=== PATIENT | female | born 1980 | race Caucasian/White ===

== ENCOUNTER 2024-11-27 08:33 | Outpatient (OUT) | payer BC, SELFPAY ==
[2024-11-27 09:35] LABS: Hematocrit 38.0 % (36.0-48.0); Hemoglobin 12.5 g/dL (12.0-16.0); Immature Granulocytes Abs Auto 0.01 10^3/uL (0.00-0.03); Immature Granulocytes Pct Auto 0.2 % (0.0-0.5); Lymphocytes Absolute Auto 1.1 10^3/uL (1.2-3.8); Mean Corpuscular HGB Conc 32.9 g/dL (29.9-35.2); Mean Corpuscular Hemoglobin 30.7 pg (26.7-34.0); Mean Corpuscular Volume 93.4 fL (81.0-99.0); Platelet Count 234 10^3/uL (150-450); Red Blood Count 4.07 10^6/uL (4.20-5.40); White Blood Count 5.8 10^3/uL (4.0-11.0)
[2024-11-27 09:44] LABS: Thyroid Stimulating Hormone 3.062 uIU/mL (0.358-3.740)
[2024-11-28 08:09] LABS: FSH 12.3 mIU/mL (.)
[2024-12-01 12:08] LABS: DHEA, Serum 181 ng/dL (31-701)
== END 2024-11-27 08:34 | disposition home or self-care (01) ==
LOC: LAB 08:38
PROVIDERS: PCP Family Medicine; Visit Provider Obstetrics & Gynecology
DX: E28.2 Polycystic ovarian syndrome (principal)
CPT/HCPCS: 36415; 82626; 82627; 83001; 83002; 83036; 84439; 84443; 84702; 85025

== ENCOUNTER 2025-03-03 07:45 | Outpatient (OUT) | payer BC, SELFPAY ==
--- OUTSIDE RECORDS SUMMARY | 2025-03-03 07:49 | XMS_ITS | Clinical Summary ---
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 MedicationSigDispense QuantityRefillsLast FilledStart DateEnd DateStatus clonazePAM (KlonoPIN) 0.5 mg tablet Indications:HEIDI (generalized anxiety disorder)Take 1 tablet (0.5 mg total) by mouth 2 (two) times a day as needed for anxiety. CHANGE TO 30 DAY SUPPLY PLUS 2 REFILLS IN FUTURE. RT 12/10/25095Active Active Problems ProblemNoted DateDiagnosed DatePosttraumatic stress /12/2020High risk HPV eukytfbyr67/28/2018Low grade squamous intraepith lesion on cytologic smear cervix (lgsil)12/02/2017 Overview (12/02/2017): With + HPV. Needs colposcopy per ASCCP guidelines Generalized anxiety wnumpsmt03/16/2017 Encounters * This document contains information received from the source organization and may not represent a complete record from that organization. DateTypeDepartmentCare SutjXvzjsqwjqfa96/07/2025Travelfrom Last 3 Months Family History Medical HistoryRelationNameCommentsHeart attackFatherDiabetesMaternal GrandmotherProstate cancerPaternal GrandfatherHeart attackPaternal Grandmother Breast cancerNeg HxRelationNameStatusCommentsFatherMaternal GrandmotherPaternal GrandfatherPaternal Grandmother Social History Tobacco UseTypesPacks/DayYears UsedDateSmoking Tobacco: Every Day Vaping/E-cigarettesSmokeless Tobacco: Never Tobacco Cessation:Ready to Q uit: No; Counseling Given: Yes Alcohol UseStandard Drinks/WeekCommentsYes1 (1 standard drink = 0.6 oz pure alcohol)occasionalChildcareAnswerDate SuelutdfYofykstypJkfodva66/06/2019 EmploymentAnswerDate NhaqobajSpbltqzrblRlsjsyr41/06/2019Hunger ScreeningAnswer Date RecordedWithin the past 12 months we worried whether our food would run out before we got money to buy more.Never True12/10/2024Within the past 12 months the food we bought just didn't last and we didn't have money to get more.Never True12/10/2024Purpose - LifeAnswerDate RecordedPurpose and direction in life Govutyl88/13/2021CommentsNoSex and Gender InformationValueDate Recorded Sex Assigned at BirthNot on fileLegal GznZsectq42/06/2015 12:00 PM EDTGender IdentityNot on fileSexual OrientationNot on file Last Filed Vital Signs Vital SignReadingTime TakenCommentsBlood Nfyougeu105/8010 11:23 AM EDT Tlvfw39690/07/2025 11:23 AM ROZQxxhkgxatth27.4 ??C (97.6 ??F)08/28/2023 8:38 AM EDTRespiratory Alol274808/28/2023 11:30 AM EDTOxygen Pgkfjkegfh190%08/28/2023 11:30 AM EDTInhaled Oxygen Concentration--Eomzey80.3 kg (144 lb)12/07/2023 11:20 AM WMDMzrnlb358.1 cm (5' 5 )12/04/2018 8:30 AM EDTBody Mass Index23.9612/04/2018 8:30 AM EDT Plan of Treatment Health MaintenanceDue DateLast DoneCommentsTobacco Numiuxceaz38/15/1979 Depression Eokiupjyp96/15/1991DTaP,Tdap and Td Vaccines (1 - Tdap)05/15/1998Pap Smear, 12/04/2018, 11/14/2017, Additional history exists Influenza Vjtlhlb8011/04/2024dult BMI Anegqlkwh99Tobacco Vbmigmunb67 Medical Devices Not on file Procedures Procedure NamePriorityDate/TimeAssociated DiagnosisCommentsPAP SMEARRoutine 12/04/2018 10:47 AM EDT Cervical smear, as part of routine gynecological examination from Last 3 Months or Most Recently Relevant to Health Maintenance Results * Pap Smear (12/04/2018 10:47 AM EDT)Specimen (Source)Anatomical Location / LateralityCollection Method / VolumeCollection TimeReceived TimeCervical TP 12/04/2018 10:47 AM EDT1 10:47 AM EDT Narrative COPATH - 12/06/2018 1:05 PM EDT [facility] ? [address] [place] [address] ? [place] [address] ? Gynecologic Cytology Consultation ? Patient Name: ODILIA ROBERTSON : 1980 (Age: 38) Gender: F Taken: 12/04/2018 Reported: 12/06/2018 Physician(s): MADDI Trevino ([phone]) Copy To: ?? [facility]. Rec. #: [id number] Acct: # [id number] Final Cytologic Interpretation Cervical (with or without endocervical) ThinPrep: Satisfactory for evaluation. A transformation zone component is present. NEGATIVE FOR INTRAEPITHELIAL LESION OR MALIGNANCY. Comment: This specimen has been sent for HPV testing. The results are in a separate report. dxl/12/06/2018 Interpretation performed at [facility], [address] [place], [place] [address], [place] [address], License number: [id number]. Electronically Signed Out By ?Daisy Mercado Date of Last Menstrual Period: ? (None Given) Other Clinical Conditions: Screening/Routine Z01.419 Adjunct Psychology Instructor exam wo/abn findings Source of Specimen ??Cervical (with or without endocervical) ThinPrep ? Thin Prep Pap (PEOPLESOFT DEVELOPER) Fee Code(s): ?? G0145 The Pap test is a screening test with an inherent, but low, probability of error. The Pap test is primarily effective for the diagnosis and prevention of squamous cell carcinoma. Regular screening iscritical for prevention. ThinPrep liquid-based slides, which meet the Sharepoint Designer Developer criteria for automated screening, have been screened by the ThinPrep Imaging System (as of 11/20/06) along with an additional manual rescreening by a school bus driver/mechanic and, if indicated, by a pathologist. Authorizing ProviderResult TypeResult StatusKatrosalba Bruno DISPUTE COORDINATOR-[facility] PATHOLOGY/CYTOLOGY ORDERABLESFinal ResultPerforming OrganizationAddress City/State/ZIP CodePhone Number COPATH from Last 3 Months or Most Recently Relevant to Health Maintenance Insurance * Guarantor: Odilia Robertson TypeRelation to PatientDate of PhoneBilling AddressPersonal/JoorkaQfsm75/15/1979 [phone] (Work) [address] [place] [address] [place] [address] Care Teams Team MemberRelationshipSpecialtyStart DateEnd Date Reinier Magana MD [facility]08/28/23
--- OUTSIDE RECORDS SUMMARY | 2025-03-03 07:49 | XMS_ITS | Clinical Summary ---
Author Organization [facility] Address [address] [place] [address] Care Team Providers Care Cloth Bleaching Supervisor Name Role Phone Unavailable Primary Care Provider Unavailabl e Medications No known medications Active Problems No known active problems Social History Tobacco UseTypesPacks/DayYears UsedDateSmoking Tobacco: Never AssessedArea Deprivation IndexAnswerDate RecordedNational Score (1-100), lower number is lower mrow463205/06/2022State Score (1-10), lower number is lower riskNot on file 3Data from: https://www.neighborhoodatlas.[facility]/. Last address used for [address] [facility] [address]CommentsUnknown Sex and Gender InformationValueDate RecordedSex Assigned at BirthNot on file Legal FjpLeigsf65/23/2023 10:28 AM ESTGender IdentityNot on fileSexual OrientationNot on file Last Filed Vital Signs Vital SignReadingTime TakenCommentsBlood Sorfxdqq230/7703 1:53 PM EST Mdchb931605/06/2022 1:53 PM ESTTemperature--Respiratory Rate--Oxygen Saturation-- Inhaled Oxygen Concentration--Pwxscz86.1 kg (150 lb 1.6 oz)05/06/2022 1:53 PM QWBQqmchg512.1 cm (5' 5 )05/06/2022 1:53 PM ESTBody Mass Index24.98005/06/2022 1:53 PM EST Plan of Treatment Health MaintenanceDue DateLast DoneCommentsAnxiety Bhypmqmmx38/15/1997Depression Ilrupzdsd25/15/1997HIV Rcvaxwymb00/15/1997Hepatitis C Zziyowhsn19/15/1997 DTaP,Tdap,Td Vaccine (1 - Tdap)1997Hepatitis B Vaccine (1 of 3 - 19+ 3- dose series)1997Cervical Cancer Mpyekqrkq42/15/2000Mammogram Screening 2018CT Uzwlhujlaciz50/15/2024ologuard (FIT-DNA)07/19/2023olonoscopy 07/19/2023olorectal Cancer Lxcseqeia64/15/2024iabetes Mvbhlsgxc98/15/2024Fecal Occult Blood07/19/2023Lipid Hktqwbvul52/15/8064Iguwxfxdtgyol81/15/2024ovid-19 Vaccine (2024- season)2024Influenza Vaccine (#1)2024 Insurance
--- OUTSIDE RECORDS SUMMARY | 2025-03-03 07:49 | XMS_ITS | Clinical Summary ---
Author Organization [facility] Address [address] [place] [place] [address] Care Team Providers Care Forestry Patrolman Name Role Phone Reinier Magana MD Primary Care Provider [phone] Allergies Active AllergyReactionsCriticalityNoted YricIwtrgtwnOvtuxqlHelvlao95/19/2017 Medications MedicationSigDispense QuantityRefillsLast FilledStart DateEnd DateStatus clonazePAM (KlonoPIN) 0.5 MG tablet Take 0.5 mg by mouth 2 (two) times a day as mppqrc1809/28/2023ctive progesterone (Prometrium) 100 MG capsule Indications:Hot flashes,Night sweats,Pelvic pain,Weight gainTake 1 capsule (100 mg) by mouth Daily 30 capsule 111ctive estradiol (Divigel) gel Indications:Postmenopausal HRT (hormone replacement therapy)APPLY 1 PACKET TO SKIN ON RIGHT OR LEFT UPPER THIGH DIRECTED EVERY DAY(ALTERNATE SITES) 90 each 5Active omeprazole (PriLOSEC) [address] capsule Indications:Gastroesophageal reflux disease without esophagitisTAKE ONE CAPSULE BY MOUTH EVERY MORNING BEFORE MEALS. DO NOT CRUSH OR CHEW 90 capsule 308Discontinued estradiol (Climara) 0.05 MG/24HR Indications:Hot flashes,Night sweats,Pelvic pain,Weight gainPlace 1 patch over 7 days on the skin 1 (one) time per week 12 patch Discontinued(Ineffective) estradiol (Divigel) gel Indications:Postmenopausal HRT (hormone replacement therapy)Place 1 application (0.5 mg) on the skin Daily Place 1 packet on the skin daily. Apply to right or l eft upper thigh each day (alternate sites) 30 each Discontinued Active Problems ProblemNoted DateDiagnosed DateGAD (generalized anxiety disorder)10/11/2023 Irritable bowel /07/5285Cjxcqhses62/07/2024nnual physical exam 10/11/2023 Assessment & Plan (10/11/2023 12:17 PM EDT): Due for labs and mammogram. Due for colonoscopy and referral in chart. Discussed proper diet and regular aerobic exercise. Need aerobic exercise 5-6 days a week for 30 minutes at a time. Smaller portions and limit total calories. Tetanus every 10 years. Advised not to smoke. Discussed daily Aspirintherapy. Gastroesophageal reflux disease without uhqucmemhsq54/07/2024 Assessment & Plan (10/11/2023 12:18 PM EDT): Worsening symptoms and start omeprazole. Resolved Problems ProblemNoted DateDiagnosed DateResolved SaokZlfdayrdhy66 Encounters DateTypeDepartmentCare WgjvYowcklrewcj16/10/2025 3:10 PM ESTConsult [facility] [address] [place], [place] [address] [address] Elia Bowie DO Postmenopausal HRT (hormone replacement therapy) (Primary Dx); Pre-op examination; Pelvic pain in female; Dysmenorrhea; Enlarged tgbmah6302/12/2025[place] [address] Estefany Delgado NP Postmenopausal HRT (hormone replacement therapy)02/12/2025amboo [place] [address] Elia Bowie DO 12/30/2024 2:50 [place] [address] Elia Bowie DO Hot flashes; Night sweats; Pelvic pain; Weight gain12/30/2024Telephone [facility] [address] [place] [address] Louise Falcon LPN 12/30/2024amboo flowsheet [facility] [address] [place] [address] Elia Bowie DO from Last 3 Months Social History Tobacco UseTypesPacks/DayYears UsedDateSmoking Tobacco: EbxwkcUhvdrurzaz7671 - 1998Smokeless Tobacco: NeverCommentsNoSex and Gender InformationValue Date RecordedSex Assigned at BirthNot on fileLegal ArjUaktyk79/15/2023 11:08 PM EDTGender IdentityNot on fileSexual OrientationNot on file Last Filed Vital Signs Vital SignReadingTime TakenCommentsBlood Uiokdknu733/8012 3:29 PM EST Unvwr865010/11/2023 11:48 AM ZBWVmcnbyjhebe70.6 ??C (97.8 ??F)10/11/2023 11:48 AM EDTRespiratory Wecc866310/11/2023 11:48 AM EDTOxygen Okxdrcqbix26%10/11/2023 11:48 AM EDTInhaled Oxygen Concentration--Swoppm79.5 kg (155 lb 8 oz)02/12/2025 3:29 PM OGLGfmbrw073.6 cm (5' 6 )10/11/2023 11:48 AM EDTBody Mass Index25. 11:48 AM EDT Plan of Treatment Not on file Insurance * Guarantor: Odilia Robertson LAccount TypeRelation to PatientDate of PhoneBilling AddressPersonal/UtbeyoQmnh79/15/1981 [address] [place] [address] Care Teams Team MemberRelationshipSpecialtyStart DateEnd Date Reinier Magana MD [address] [facility] [place] [address] PCP - [facility]10/02/23
--- NOTE | 2025-03-03 08:32 | ECG_ITS ---
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 Measurements Intervals [place] Rate: 76 P: 54 MO: 139 QRS: 79 QRSD: 89 T: 40 QT: 380 QTc: 429 Interpretive Statements SINUS RHYTHM Normal ECG No previous ECG available for comparison Electronically Signed On 03-03-2025 14:23:46 EST by LIBAN DIAMOND M.D.
--- NOTE | 2025-03-03 08:40 | XR_ITS ---
[address] [address] Patient Name: CANDIDO PEREZ MRN: [id number] date: 1980 Sex: F [facility] Current [facility] Location: [facility] Accession/Order Number: [id number] Exam Date: 03/03/2025 09:02 Report Date: 03/03/2025 10:23 At the request of: TIANA JAMA DO Procedure: XR chest 2V PA AND LATERAL CHEST: CLINICAL HISTORY: Preoperative clearance. History of tobacco use COMPARISON: None There is no focal parenchymal consolidation, effusion or pneumothorax. The cardiac, hilar and mediastinal silhouettes are within normal limits. There is no vascular congestion. The visualized bony thorax is intact. There is slight scoliotic curvature. XR/XR chest 2V IMPRESSION: NO ACUTE CARDIOPULMONARY ABNORMALITY. Impression dictated by: Yulissa Doshi M.D. 03/03/2025 10:23 AM Dictation Location: [place] [address] Electronically authenticated by: [id number] Y Date: 03/03/2025 10:23
[2025-03-03 09:36] LABS: Glucose Urine UA NEGATIVE (NEGATIVE)
[2025-03-03 09:49] LABS: Cast Seen? NONE SEEN #/LPF (NONE SEEN); Crystals Seen? None Seen #/HPF (None Seen); Urine Culture Indicated YES-FRMC
== END 2025-03-03 07:46 | disposition home or self-care (01) ==
LOC: PST 07:46
PROVIDERS: PCP Family Medicine; Visit Provider Obstetrics & Gynecology
DX: Z01.810 Encounter for preprocedural cardiovascular examination (principal); Z01.812 Encounter for preprocedural laboratory examination; R10.20 Pelvic and perineal pain unspecified side; N94.6 Dysmenorrhea, unspecified; N85.2 Hypertrophy of uterus
CPT/HCPCS: 71046; 81001; 87086; 87088; 87186; 93005